=== PATIENT | female | born 1985 | race Caucasian/White ===

== ENCOUNTER 2019-01-23 11:04 | Emergency (ER) | payer OTHER ==
[~2019-01-23] VITALS: Ht 167.6 cm; Wt 90.7 kg
[~2019-01-23 11:04] MED LIST: ACET325 PO; ALBU90OI INH; ALBU90OI6 INH; AMOCLA875 PO; AMOX500 PO; AZIT250 PO; CLOT10 SS; CODACE30 PO; DOXY100 PO; HYDACE5 PO; IBUP800; Mobic15 MG PO; OXYACE5T PO; PENVK500 PO; PHENA200 PO; PRED20 PO; PROACE100 PO; RANI150 PO; RXHYDACE PO; SULTRIDS PO; TRAM50 PO; VARE1 PO
[2019-01-23] MEDS ORDERED: GABAPENTIN600 MG PO (11:10)
[2019-01-23] MEDS ORDERED: BUPROPION HCL XL 300 ×2 (11:10→11:11)
[2019-01-23] MEDS ORDERED: VENLAFAXINE HC225 MG PO (11:10)
[2019-01-23] MEDS ORDERED: IBUP800 PO (13:12)
[2019-01-23] MEDS ORDERED: Robaxin-750750 MG PO (13:12)
== END 2019-01-23 13:18 | disposition home or self-care (01) ==
LOC: ER 11:04
DX: M54.5 Low back pain (principal); Z88.5 Allergy status to narcotic agent; Z87.891 Personal history of nicotine dependence; Z79.899 Other long term (current) drug therapy; W19.XXXA Unspecified fall, initial encounter
CPT/HCPCS: 96372; 99283-25; J1885

== ENCOUNTER → 2021-02-22 | Outpatient (CLI) | payer OTHER ==
[~2021-02-22] MED LIST changes: +BUPROPION HCL XL 300; +GABAPENTIN600 MG PO; +IBUP800 PO; +Robaxin-750750 MG PO; +VENLAFAXINE HC225 MG PO
[2021-02-22 11:15] LABS: BASOPHILS ABSOLUTE AUTO 0.05 K/mm3 (0.00-0.23); BASOPHILS PERCENT AUTO 1 % (0-2); EOSINOPHILS PERCENT AUTO 5 % (0-6); Hematocrit 39.9 % (33.0-51.0); IMMATURE GRAN ABSOLUTE AUTO 0.01 K/mm3 (0.00-0.10); IMMATURE GRAN PERCENT AUTO 0 % (0-1); LYMPHOCYTES ABSOLUTE AUTO 1.62 K/mm3 (0.84-5.20); LYMPHOCYTES PERCENT AUTO 26 % (21-46); MONOCYTES ABSOLUTE AUTO 0.72 K/mm3 (0.16-1.47); MONOCYTES PERCENT AUTO 11 % (4-13); Mean Corpuscular HGB 28.9 pg (26.0-34.0); Mean Corpuscular HGB Conc 32.6 g/dL (31.5-36.5); Mean Corpuscular Volume 89 fL (80-100); Mean Platelet Volume 10.3 fL (9.1-12.4); NEUTROPHILS ABSOLUTE AUTO 3.61 K/mm3 (1.96-9.15); NEUTROPHILS PERCENT AUTO 57 % (41-73); Platelet Count 311 K/mm3 (150-400); RDW Coefficient Variation 12.9 % (11.7-14.2); RDW Standard Deviation 41.7 fL (35.1-46.3); White Blood Cell Count 6.31 K/mm3 (4.00-11.30)
[2021-02-22 11:38] LABS: Alanine Aminotransfer (ALT/SGP 34 U/L (12-78); Albumin, Blood 3.7 g/dL (3.4-5.0); Albumin/Globulin Ratio 1.1 (0.8-1.8); Alk Phos 116 U/L (40-126); Anion Gap 11 mmol/L (6-16); Aspartate Aminotrans (AST/SGOT 19 U/L (12-37); Bilirubin, Total 0.4 mg/dL (0.1-1.0); Blood Urea Nitrogen 18 mg/dL (8-24); Bun/Creatinine Ratio 23.4 (12.0-20.0); CO2, Blood 24 mmol/L (21-32); Calcium, Blood 8.9 mg/dL (8.5-10.1); Chloride, Blood 106 mmol/L (98-108); Creatinine, Blood 0.77 mg/dL (0.40-1.00); Globulin, Blood 3.4 g/dL (2.2-4.0); Glomerular Filtration Rate >60 (60-); Glucose, Blood 104 mg/dL (70-99); Potassium, Blood 4.2 mmol/L (3.5-5.5); Sodium, Blood 141 mmol/L (136-145); Thyroid Stimulating Hormone 4.303 uIU/mL (0.360-4.800); Total Protein, Blood 7.1 g/dL (6.4-8.2)
== END | disposition home or self-care (01) ==
LOC: LAB SHORT 11:12
PROVIDERS: Physician Assistant
DX: R53.83 Other fatigue (principal); R51.9 Headache, unspecified
CPT/HCPCS: 80053; 84443; 85025

== ENCOUNTER → 2021-03-30 | Outpatient (CLI) | payer OTHER | END | disposition home or self-care (01) | LOC: LAB SHORT 12:16 | DX: D22.5 Melanocytic nevi of trunk (principal) | CPT/HCPCS: 88305 ==

== ENCOUNTER 2021-05-11 08:01 | Day surgery (SDC) | payer OTHER ==
[~2021-05-11] VITALS: Ht 167.6 cm; Wt 129.8 kg
[2021-05-11] MEDS ORDERED: OMEP20ER (08:49)
--- NOTE | 2021-05-11 08:52 | NUR ---
05/11/21 0852 Sunitha Fuller 1 TRY RIGHT HAND BLEW
== END 2021-05-11 10:38 | disposition home or self-care (01) ==
LOC: ORSCSDS 08:01
PROVIDERS: Student in an Organized Health Care Education/Training Program
PROC: 0DB78ZX Excision of Stomach, Pylorus, Via Natural or Artificial Opening Endoscopic, Diagnostic (ICD-10-PCS; principal; 2021-05-11 12:30)
PROC: 0DB58ZX Excision of Esophagus, Via Natural or Artificial Opening Endoscopic, Diagnostic (ICD-10-PCS; principal; 2021-05-11 12:30)
PROC: 0DB48ZX Excision of Esophagogastric Junction, Via Natural or Artificial Opening Endoscopic, Diagnostic (ICD-10-PCS; principal; 2021-05-11 12:30)
DX: K21.9 Gastro-esophageal reflux disease without esophagitis (principal); K22.70 Barrett's esophagus without dysplasia; K29.70 Gastritis, unspecified, without bleeding; Z87.891 Personal history of nicotine dependence; Z79.899 Other long term (current) drug therapy; E66.01 Morbid (severe) obesity due to excess calories; Z68.42 Body mass index [BMI] 45.0-49.9, adult
CPT/HCPCS: 88305; 88342; A9270; J2250; J2704; J3010; J7120

== ENCOUNTER → 2022-02-25 | Outpatient (CLI) | payer OTHER ==
[~2022-02-25] MED LIST changes: +OMEP20ER
[2022-03-01 14:08] LABS: HPV 16 Negative (Negative); HPV 18 Negative (Negative); HPV OTHER HR TYPES Negative (Negative)
== END ==
LOC: LAB 15:51 → LAB SHORT 15:51
PROVIDERS: Family Medicine
DX: Z12.4 Encounter for screening for malignant neoplasm of cervix (principal)
CPT/HCPCS: 87624; G0145